=== PATIENT | male | born 1950 | race Caucasian/White ===

== ENCOUNTER → 2018-09-19 | Outpatient (CLI) | payer MEDICARE ==
[~2018-09-19] MED LIST: Z RISPERDAL PO; Z.0.IRON18 MG PO; Z.0.MULTIVITAMINS1 E
--- NOTE | 2018-09-19 19:01 | Diagnostic Imaging Report ---
Right knee MRI without contrast. History: Knee pain. Decreased range of motion. Pain not responding to conservative management Comparison: None. Technique: Multiplanar multi-sequence MRI of the knee without contrast. Findings: Medial compartment: Complex tear involving the posterior horn and body segment of the medial meniscus. Regions of full-thickness articular cartilage loss in the medial compartment with underlying bone marrow edema. Peripheral marginal osteophytes. The medial collateral ligament complex is intact. Lateral compartment: No meniscal tear or cartilage abnormality. The LCL complex is normal. Intercondylar notch: Scarring and attenuation of the anterior cruciate ligament. The posterior cruciate ligament is intact Patellofemoral compartment: Regions of full-thickness articular cartilage loss in the patellofemoral compartment with underlying bone marrow edema Extensor mechanism: The quadriceps and patellar tendons are normal. Other findings: There is a joint effusion and synovitis. Soft tissue edema about the knee. There is no acute fracture, subluxation or avascular necrosis. Lobulated septated Salgado's cyst containing debris. IMPRESSION: Complex medial meniscus tear with advanced degenerative arthrosis in the medial compartment of the knee. Regions of full-thickness articular cartilage loss in the patellofemoral compartment with underlying bone marrow edema. Scarring and attenuation of the anterior cruciate ligament. Joint effusion, synovitis, lobulated septated Salgado's cyst containing debris and soft tissue edema about the knee. Signed by: Dr. Gaurav Dennis M.D. on 09/19/2018 6:58 PM
== END ==
LOC: MRI 16:22
PROVIDERS: ATTEND Family Medicine
DX: M25.561 Pain in right knee (principal); M25.461 Effusion, right knee; M23.306 Other meniscus derangements, unspecified meniscus, right knee

== ENCOUNTER → 2018-10-02 | Day surgery (SDC) | payer MEDICARE ==
[2018-09-30 15:52] LABS: BASOPHILS % 0.6 % (0.0-1.0); EOSINOPHILS # (AUTO) 0.2 (0.0-0.4); EOSINOPHILS % 2.7 % (0.0-6.0); HEMATOCRIT 37.9 % (38.2-49.6); HEMOGLOBIN 12.3 g/dL (14.0-18.0); LYMPHOCYTES # (AUTO) 1.9 (1.0-3.2); LYMPHOCYTES % 27.3 % (18.0-39.1); MEAN CORPUSCULAR HEMOGLOBIN 28.7 pg (28-32); MEAN CORPUSCULAR HGB CONC 32.5 g/dL (31-35); MEAN CORPUSCULAR VOLUME 88.3 fL (81-99); MONOCYTES # (AUTO) 0.6 (0.2-0.8); MONOCYTES % 8.1 % (4.4-11.3); NEUTROPHILS # (AUTO) 4.3 (2.1-6.9); NEUTROPHILS % 61.2 % (38.7-80.0); PLATELET COUNT 213 x10e3/uL (140-360); RED BLOOD COUNT 4.29 x10e6/uL (4.3-5.7); RED CELL DISTRIBUTION WIDTH 13.2 % (11.7-14.4)
--- NOTE | 2018-09-30 16:48 | Diagnostic Imaging Report ---
EXAMINATION: PA and lateral views of the chest. COMPARISON: None CLINICAL HISTORY: Preoperative study for knee surgery DISCUSSION: Left apical pleural and parenchymal scar with volume loss resulting in ipsilateral mediastinal shift and upward left hilar retraction. Otherwise hyperinflated lungs with linear parenchymal and pleural scar in the right upper lobe. No focal consolidation or effusion. No pneumothorax. Cardiomediastinal contour is within normal limits when accounting for degree of anatomic distortion by above described left apical scar. No acute osseous abnormality. IMPRESSION: No acute cardiopulmonary abnormality. Advanced left apical pleural-parenchymal scar with volume loss and ipsilateral mediastinal shift. Less extensive scar in the suprahilar right lung. Background pulmonary hyperinflation suggestive of COPD/emphysema. Signed by: Dr. Prateek Clifford M.D. on 09/30/2018 4:45 PM
[~2018-10-02] MED LIST changes: +BUPIVACAINE 0.5%/EPI 30 ML SDV INJ ONE; +CEFAZOLIN SOD 2 GM/D5W 50ML 50 ML IV ONE; +DEXAMETHASONE SOD PHOS INJ 4 MG/ML VIAL ONE; +FENTANYL CITRATE/PF 100MCG/2 ML INJ ONE; +KETOROLAC TROMETHAMINE 30 MG/ML VIAL ONE; +LIDOCAINE HCL 2% LOCAL INJ 5 ML SDV VIAL INJ ONE; +MIDAZOLAM HCL 2 MG/2 ML VIAL ONE; +ONDANSETRON HCL INJ 2MG/ML 2ML 2 MG/ML VIAL ONE; +PROPOFOL IV EMULSION 10 MG/ML 20 ML VIAL ONE; +SEVOFLURANE INHAL SOLN 250 ML PEN BTL ONE
--- OUTSIDE RECORDS SUMMARY | 2018-10-02 05:57 | XMS REPORT | Continuity of Care Document ---
Author Author Geena jay [facility] Interface Address Unknown Phone Unavailable Problems Problem Status Onset Date Classification Date Reported Comments Source Synovial cyst of popliteal space 08/31/2018 Diagnosis 08/31/2018 [facility] Infection of skin 04/15/2017 Diagnosis 04/15/2017 [facility] Allergic Rhinitis Problem 08/31/2018 [facility] Medications Medication Details Route Status Patient Instructions Ordering Provider Order Date Source Ibuprofen 600 MG Oral Tablet ibuprofen 600 mg tablet Take 1 tablet 3 times a day by oral route for 5 days. Active [facility] Medrol (Abisai) 4 mg tablets in a dose pack Medrol (Abisai) 4 mg tablets in a dose pack Take 1 dose pk by oral route. Active [facility] Risperidone 1 MG Oral Tablet risperidone 1 mg tablet TAKE ONE (1) TABLET(S) BY MOUTH ONCE A DAY. Active [facility] Sulfamethoxazole 800 MG / Trimethoprim 160 MG Oral Tablet [Bactrim] Bactrim DS 800 mg-160 mg tablet Take 1 tablet every 12 hours by oral route as directed for 10 days. Active [facility] Mupirocin 0.02 MG/MG Topical Ointment mupirocin 2 % topical ointment APPLY A SMALL AMOUNT TO THE AFFECTED AREA BY TOPICAL ROUTE 2 TIMES PER DAY X 10 DAYS. Active [facility] Allergies, Adverse Reactions, Alerts Substance Category Reaction Severity Reaction type Status Date Reported Comments Source Immunizations Immunization Date Given Site Status Last Updated Comments Source Results Order Name Results Value Reference Range Date Interpretation Comments Source Vital Signs Vital Sign Value Date Comments Source Diastolic (mm Hg) 60 08/31/2018 [facility] Height 68 08/31/2018 [facility] Systolic (mm Hg) 120 08/31/2018 [facility] Weight 160 08/31/2018 [facility] Diastolic (mm Hg) 72 04/15/2017 [facility] Height 68 04/15/2017 [facility] Systolic (mm Hg) 124 04/15/2017 [facility] Weight 160 04/15/2017 [facility] Encounters Location Location Details Encounter Type Encounter Number Reason For Visit Attending Provider ADM Date DC Date Status Source [place] - [facility] - [id number] KnutsonKARLOS mar[place]-C: [address] [place] [address], Ph. [id number] Kyleigh Wells 04/15/2017 [facility] [place] - [facility] [id number] KARLOS Juarez-C: [address] [place] [address], Ph. [id number] Jaime Diamond 08/31/2018 [facility] Procedures Procedure Code Date Perfomer Comments Source
--- OUTSIDE RECORDS SUMMARY | 2018-10-02 05:57 | XMS REPORT | Encounter Summary ---
Author Organization Unknown Address [address] [place] [address] Phone [phone] Care Team Providers Care Access Services Assistant Name Role Phone [facility] 3 [phone] Reason for Visit Medical Complaint Instructions 1. Synovial cyst of popliteal space salgado's cyst: care instructions Medrol (Abisai) 4 mg tablets in a dose pack ibuprofen 600 mg tablet Discussion Note: None recorded. Plan of Care Patient Instructions A Salgado's cyst is a swelling behind the knee. It may cause pain or stiffness when you bend your knee or straighten it all the way. Salgado's cysts are also called popliteal cysts. If you have arthritis or another condition that is the cause of the Salgado's cyst, your doctor may treat that condition. A Salgado's cyst may go away on its own. If not, or if it is causing a lot of discomfort, your doctor may drain the fluid that has built up behind the knee. In some cases, a Salgado's cyst is removed in surgery. There are things you can do at home, such as staying off your leg, to reduce the swelling and pain. Follow-up care is a hunter part of your treatment and safety. Be sure to make and go to all appointments, and call your doctor if you are having problems. It's also a good idea to know your test results and keep a list of the medicines you take. How can you care for yourself at home? Rest your knee as much as possible. Ask your doctor if you can take an kclt-vjx-scufvot pain medicine, such as acetaminophen (Tylenol), ibuprofen (Advil, Motrin), or naproxen (Aleve). Be safe with medicines. Read and follow all instructions on the label. Use a cane, a crutch, a walker, or another device if you need help to get around. These can help rest your knees. If you have an elastic bandage, make sure it is snug but not so tight that your leg is numb, tingles, or swells below the bandage. Ask your doctor if you can loosen the bandage if it is too tight. Follow your doctor's instructions about how much weight you can put on your knee. Stay at a healthy weight. Being overweight puts extra strain on your knee. When should you call for help? Call 911 anytime you think you may need emergency care. For example, call if: You have chest pain, are short of breath, or you cough up blood. Call your doctor now or seek immediate medical care if: You have new or worse pain. Your foot is cool or pale or changes color. You have tingling, weakness, or numbness in your foot or toes. You have signs of a blood clot in your leg (called a deep vein thrombosis), such as: Pain in your calf, back of the knee, thigh, or groin. Redness or swelling in your leg. Watch closely for changes in your health, and be sure to contact your doctor if: You do not get better as expected. Reminders Provider Appointments None recorded. Lab None recorded. Referral None recorded. Procedures None recorded. Surgeries None recorded. Imaging None recorded. Medications Name Start Date ibuprofen 600 mg tablet Take 1 tablet 3 times a day by oral route for 5 days. Medrol (Abisai) 4 mg tablets in a dose pack Take 1 dose pk by oral route. risperidone 1 mg tablet TAKE ONE (1) TABLET(S) BY MOUTH ONCE A DAY. Medications Administered None recorded. Vitals Height Weight BMI Blood Pressure 5 ft 8 in 160 lbs 24.3 kg/m2 120/60 mm[Hg] Lab Results None recorded. Allergies Code Code System Name Reaction Severity Status Onset NKDA Problems Name Status Onset Date Source Allergic Rhinitis Active Encounter Procedures None recorded. Vaccine List None recorded. Social History Smoking Status Never Smoker Past Encounters 08/31/2018 Synovial Cyst of Popliteal Space GUIDO JuarezC: [address] [place] [address], Ph. History of Present Illness Musculoskeletal Complaint Reported By: Patient HPI: Location: pain is not radiating. Severity: no pain. Aggravating factors: nothing makes it worse. Associated Symptoms: no fever/chills, no warmth, no drainage, no ecchymosis, no weakness, no tingling, no numbness, no radiation, no catching/locking, no popping/clicking, no buckling, no grinding, no instability, no weight loss, no change in bowel/bladder habits, no muscle aches, no headache, swelling/redness Review of Systems:ROS as noted in the HPI Review of Systems Basic Reported By: Patient Physical Exam Adult Basic, Adult Male Complete Reported By: Patient Constitutional: General Appearance: healthy-appearing, well-nourished, well-developed. Level of Distress: NAD. Ambulation: ambulating normally Psychiatric: Mental Status: active and alert. Orientation: to time, to place, to person Lungs: Respiratory effort: no dyspnea, no tachypnea, no use of accessory muscles, no intercostal retractions. Auscultation: breath sounds normal, good air movement Cardiovascular: Heart Auscultation: RRR, no murmurs Musculoskeletal:: Motor Strength and Tone: normal motor strength, normal tone, normal. Joints, Bones, and Muscles: normal movement of all extremities, no bony abnormalities, no contractures, no malalignment, no tenderness; swelling R popliteal space. Extremities: no cyanosis, no edema, no varicosities, no palpable cord
--- OUTSIDE RECORDS SUMMARY | 2018-10-02 05:57 | XMS REPORT | Encounter Summary ---
Author Organization Unknown Address [address] [place] [address] Phone [phone] Care Team Providers Care Can Reforming Machine Operator Name Role Phone [facility] 3 [phone] Reason for Visit Right Medical Complaint Instructions 1. Infection of skin mupirocin 2 % topical ointment Bactrim DS 800 mg-160 mg tablet culture, aerobic Discussion Note Pt is in NAD; Verbalizes understanding of all instructions with no questions at this time. Patient educational handouts: No information available. Plan of Care Patient Instructions Keep area clean and dry. Clean with soap and water twice a day, pat dry and apply antibiotic ointment as directed. Take antibiotics as directed. Take medications as prescribed. Return to clinic or follow up with your PCP within 2-3 days if symptoms worsen as discussed. In case of emergency: worsening swelling or redness, tingling/numbness/loss of sensation and purple discoloration call 911 or go to nearest ER Reminders Provider Appointments None recorded. Lab Culture, Aerobic 04/15/2017 [facility] Referral None recorded. Procedures None recorded. Surgeries None recorded. Imaging None recorded. Medications Name Start Date Bactrim DS 800 mg-160 mg tablet Take 1 tablet every 12 hours by oral route as directed for 10 days. mupirocin 2 % topical ointment APPLY A SMALL AMOUNT TO THE AFFECTED AREA BY TOPICAL ROUTE 2 TIMES PER DAY X 10 DAYS. risperidone 1 mg tablet TAKE ONE (1) TABLET(S) BY MOUTH ONCE A DAY. Medications Administered None recorded. Vitals Height Weight BMI Blood Pressure 5 ft 8 in 160 lbs 24.3 kg/m2 124/72 mm[Hg] Lab Results None recorded. Allergies Code Code System Name Reaction Severity Status Onset NKDA Problems Name Status Onset Date Source Allergic Rhinitis Active Encounter Procedures None recorded. Vaccine List None recorded. Social History Smoking Status Never Smoker Past Encounters 04/15/2017 Infection of Skin GUID[facility] EricksonC: [address], [place] [address], Ph. History of Present Illness Nbdu-Zvirbkk-Usbzq-Skin Lesion-Bite 1 Reported By: Patient HPI: Location: legs. Quality: not itchy, painful, tender, weeping, red, single, localized, swollen. Severity: worsening. Duration: has noted for 1-2 weeks. Onset/Timing: gradual onset. Context: no new detergents or skin products, no one else with similar rash, no sting or bite, scratching. Aggravating factors: clothing. Alleviating factors: nothing gives relief. Associated Symptoms: no fever/chills, no muscle aches, no headache, no cold symptoms, no nausea, no vomiting, no diarrhea, no urinary symptoms Review of Systems:ROS as noted in the HPI Review of Systems Basic Reported By: Patient Physical Exam Adult Basic, 14-21 Yr Male, Adult Male Complete, 4-6 Yr Female Reported By: Patient Constitutional: General Appearance: healthy-appearing, well-nourished, well-developed. Level of Distress: NAD. Ambulation: ambulating normally Psychiatric: Mental Status: active and alert, normal affect, normal mood. Orientation: to time, to place, to person Eyes: Lids and Conjunctivae: non-injected, no discharge Neck: Neck: supple. Lymph Nodes: no cervical LAD Lungs: Respiratory effort: no dyspnea, no tachypnea, no use of accessory muscles, no intercostal retractions. Auscultation: breath sounds normal, clear to auscultation, no wheezing, no rales/crackles, no rhonchi, no retractions, good air movement Cardiovascular: Heart Auscultation: RRR, no murmurs, no gallops, no rub. Rate and rhythm: regular Neurologic: Gait and Station: normal gait, normal station Skin: Inspection and palpation: no rash, no ulcer, no abnormal nevi, no induration, no nodules, good turgor, no jaundice, lesion
--- OUTSIDE RECORDS SUMMARY | 2018-10-02 05:57 | XMS REPORT ---
Author Author [facility] Address Unknown Phone Unavailable Care Team Providers Care Production Broacher Name Role Phone RITO MONZON Unavailable Unavailable TARA VALDOVINOS Unavailable Unavailable Problems This patient has no known problems. Allergies, Adverse Reactions, Alerts This patient has no known allergies or adverse reactions. Medications This patient has no known medications. Results Test Description Test Time Test Comments Text Results Atomic Results Result Comments CHEST 2 VIEWS 2018-09-30 16:42:00 [facility] [address] [address] Patient Name: WOOD DIAZ MR #: [id number] : 1950 Age/Sex: 68/M Req #: [id number] Adm Physician: Ordered by: RITO MONZON MD Report #: [id number] Location: OR Room/Bed: Procedure: [id number] DX/CHEST 2 VIEWS Exam Date: Exam Time: REPORT STATUS: Signed EXAMINATION: PA and lateral views of the chest. COMPARISON: None CLINICAL HISTORY: Preoperative study for knee surgery DISCUSSION: Left apical pleural and parenchymal scar with volume loss resulting in ipsilateral mediastinal shift and upward left hilar retraction. Otherwise hyperinflated lungs with linear parenchymal and pleural scar in the right upper lobe. No focal consolidation or effusion. No pneumothorax. Cardiomediastinal contour is within normal limits when accounting for degree of anatomic distortion by above described left apical scar. No acute osseous abnormality. IMPRESSION: No acute cardiopulmonary abnormality. Advanced left apical pleural-parenchymal scar with volume loss and ipsilateral mediastinal shift. Less extensive scar in the suprahilar right lung. Background pulmonary hyperinflation suggestive of COPD/emphysema. Signed by: Dr. Sahbnam Mckeon M.D. on 09/30/2018 4:45 PM Dictated By: SHABNAM MCKEON MD 44 Transcribed By: PIPPA on 09/30/181644 COPY TO: RITO MONZON MD MRI RIGHT KNEE WO 2018-09-19 18:55:00 [place] [address] Patient Name: WOOD DIAZ MR #: [id number] : 1950 Age/Sex: 68/M Req #: [id number] Adm Physician: Ordered by: TARA VALDOVINOS DO Report #: [id number] Location: MRI Room/Bed: Procedure: [id number] MRI/MRI RIGHT KNEE WO Exam Date: Exam Time: REPORT STATUS: Signed Right knee MRI without contrast. History: Knee pain. Decreased range of motion. Pain not responding to conservative management Comparison: None. Technique: Multiplanar multi-sequence MRI of the knee without contrast. Findings: Medial compartment: Complex tear involving the posterior horn and body segment of the medial meniscus. Regions of full-thickness articular cartilage loss in the medial compartment with underlying bone marrow edema. Peripheral marginal osteophytes. The medial collateral ligament complex is intact. Lateral compartment: No meniscal tear or cartilage abnormality. The LCL complex is normal. Intercondylar notch: Scarring and attenuation of the anterior cruciate ligament. The posterior cruciate ligament is intact Patellofemoral compartment: Regions of full-thickness articular cartilage loss in the patellofemoral compartment with underlying bone marrow edema Extensor mechanism: The quadriceps and patellar tendons are normal. Other findings: There is a joint effusion and synovitis. Soft tissue edema about the knee. There is no acute fracture, subluxation or avascular necrosis. Lobulated septated Salgado's cyst containing debris. IMPRESSION: Complex medial meniscus tear with advanced degenerative arthrosis in the medial compartment of the knee. Regions of full-thickness articular cartilage loss in the patellofemoral compartment with underlying bone marrow edema. Scarring and attenuation of the anterior cruciate ligament. Joint effusion, synovitis, lobulated septated Salgado's cyst containing debris and soft tissue edema about the knee. Signed by: Dr. Gaurav Dennis M.D. on 09/19/2018 6:58 PM Dictated By: GAURAV DENNIS MD, MD 57 Transcribed By: PIPPA on 09/19/181857 COPY TO: TARA VALDOVINOS DO
[2018-10-02 11:03] VITALS: BP 144/87
--- NOTE | 2018-10-05 03:35 | Operative Report ---
DATE OF PROCEDURE: 10/02/2018 SURGEON: Stefano Rowan MD PREOPERATIVE DIAGNOSES: Right knee medial meniscus tear and right knee degenerative joint disease. POSTOPERATIVE DIAGNOSES: Right knee medial meniscus tear and right knee degenerative joint disease. PROCEDURE PERFORMED: Right knee examination under anesthesia, right knee arthroscopy, right knee partial medial meniscectomy, right knee chondroplasty of the patella, the trochlea, the medial femoral condyle, the medial tibial plateau, the lateral femoral condyle, and the lateral tibial plateau. HANDLE BENDER: KARLOS Shirley. ANESTHESIA: General endotracheal intubation anesthesia. IV FLUIDS: Per the Anesthesia records. BRIEF DISCUSSION AND OPERATIVE PROCEDURE: Mr. Carroll was taken to the operating room, placed in the supine position on the operating table. Following induction of general anesthesia as well as endotracheal intubation, the patient's right lower extremity was examined under anesthesia. He was found to have a mild effusion with the knee joint, but otherwise ligamentously stable knee. The patient's lower extremity was prepped and draped in the standard surgical fashion. A 2-port technique was used to provide this patient arthroscopic evaluation of the knee joint. Examination of suprapatellar pouch, medial and lateral gutters found no evidence of loose bodies. There was, however, evidence of chondromalacia of the patella and trochlear surfaces. Scope was advanced in the medial compartment. There was a torn and macerated medial meniscus. A combination of upbiting forceps and a motorized shaver used to dissect the known portion of the meniscus. There was also chondromalacia of the articulating surfaces. A chondroplasty of the medial femoral condyle and medial tibial plateau were performed at this time. Scope was then advanced into the intercondylar notch and the anterior cruciate ligament that were found to be intact. Scope was advanced in the lateral compartment and chondromalacia articulating surfaces were encountered. A chondroplasty of the lateral femoral condyle and lateral tibial plateau were performed at this time. The scope was then placed in suprapatellar pouch and chondroplasties of the patella and trochlea were performed. The knee was normal saline. Each of the portal sites were closed using 4-0 nylon suture. The portal sites as well as the knee itself was injected with 0.5% Marcaine with epinephrine. Sterile dressings were applied, and the patient was awakened and taken to the postanesthesia care unit in stable condition. MD KELLY Blackwood/JUSTIN /[id number]
== END | disposition home or self-care (01) ==
LOC: OR 05:55
PROVIDERS: ATTEND Specialist
DX: S83.241A Other tear of medial meniscus, current injury, right knee, initial encounter (principal); M17.11 Unilateral primary osteoarthritis, right knee; M71.21 Synovial cyst of popliteal space [Baker], right knee; M94.261 Chondromalacia, right knee; Z01.810 Encounter for preprocedural cardiovascular examination; Z01.812 Encounter for preprocedural laboratory examination; Z01.818 Encounter for other preprocedural examination; Z87.891 Personal history of nicotine dependence
CPT/HCPCS: 29881; 36415; 71046; 85025; 93005; J0690; J1100; J1885; J2001; J2250; J2405; J2704